=== PATIENT | female | born 1935 | race Hispanic/Latino ===

== ENCOUNTER 2018-03-05 13:19 | Emergency (ER) | payer OTHER ==
[2018-03-05 14:28] LABS: BASOPHILS % (AUTO) 0.5 % (0.0-5.0); EOSINOPHILS % (AUTO) 0.3 % (0.0-8.0); HEMATOCRIT 35.4 % (36-48); LYMPHOCYTES % (AUTO) 15.5 % (21.0-51.0); MEAN CORPUSCULAR HEMOGLOBIN 31.8 pg (27.0-33.0); MEAN CORPUSCULAR HGB CONC 34.8 g/dL (32.0-36.0); MEAN CORPUSCULAR VOLUME 91.3 fL (79-99); MONOCYTES % (AUTO) 6.7 % (3.0-13.0); PLATELET COUNT (AUTO) 97 K/uL (130-400); RED BLOOD CELL COUNT(AUTO) 3.88 MIL/uL (4.00-5.50); RED CELL DISTRIBUTION WIDTH 16.6 % (11.0-15.5); WHITE BLOOD COUNT (AUTO) 5.1 K/uL (4.8-10.8)
[2018-03-05 14:42] LABS: ALBUMIN 3.4 g/dL (3.5-5.0); BILIRUBIN,TOTAL 0.7 mg/dL (0.2-1.0); POTASSIUM 4.2 mmol/L (3.5-5.1); TOTAL PROTEIN, SERUM 6.4 g/dL (6.0-8.3)
[2018-03-05] MEDS ORDERED: TETANUS/DIPHTHERIA TOXOID [ADULT] 0.5 ML VIAL IM ONE (15:41)
== END 2018-03-05 16:13 | disposition home or self-care (01) ==
LOC: EDH 13:19
DX: S01.01XA Laceration without foreign body of scalp, initial encounter (principal); I25.10 Atherosclerotic heart disease of native coronary artery without angina pectoris; E11.9 Type 2 diabetes mellitus without complications; E78.5 Hyperlipidemia, unspecified; I10 Essential (primary) hypertension; Z90.49 Acquired absence of other specified parts of digestive tract; Z98.890 Other specified postprocedural states; W18.39XA Other fall on same level, initial encounter; Y93.89 Activity, other specified; Y92.89 Other specified places as the place of occurrence of the external cause; Y99.8 Other external cause status
CPT/HCPCS: 12001; 36415; 70450; 80053; 85025; 90471; 90714

== ENCOUNTER → 2018-05-03 | Outpatient (CLI) | payer OTHER ==
[~2018-05-03] MED LIST: GADODIAMIDE 5 MMOL/10 ML VIAL 5 MMOL/10 ML ML IV ONE
== END | disposition home or self-care (01) ==
LOC: RAH 11:10
PROVIDERS: ATTEND Family Medicine
DX: G31.9 Degenerative disease of nervous system, unspecified (principal); R26.9 Unspecified abnormalities of gait and mobility; R90.82 White matter disease, unspecified
CPT/HCPCS: 70553; A9579

== ENCOUNTER 2019-10-14 13:54 | Inpatient (IN) | payer OTHER ==
[~2019-10-14] VITALS: Ht 160 cm; Wt 62.6 kg
[2019-10-14 14:46] LABS: BASOPHILS % (AUTO) 0.4 % (0.0-5.0); EOSINOPHILS % (AUTO) 1.2 % (0.0-8.0); HEMATOCRIT 31.9 % (36-48); LYMPHOCYTES % (AUTO) 17.1 % (21.0-51.0); MEAN CORPUSCULAR HEMOGLOBIN 29.5 pg (27.0-33.0); MEAN CORPUSCULAR HGB CONC 34.2 g/dL (32.0-36.0); MEAN CORPUSCULAR VOLUME 86.2 fL (79-99); MONOCYTES % (AUTO) 6.3 % (3.0-13.0); NEUTROPHILS % (AUTO) 74.4 % (40.0-77.0); PLATELET COUNT (AUTO) 77 K/uL (130-400); RED CELL DISTRIBUTION WIDTH 13.7 % (11.0-15.5); WHITE BLOOD COUNT (AUTO) 5.1 K/uL (4.8-10.8)
[2019-10-14 15:03] LABS: APPEARANCE,URINE Clear (CLEAR); BILIRUBIN,URINE Negative (NEGATIVE); COLOR,URINE Yellow (YELLOW); GLUCOSE, URINE (UA) >=1000 mg/dL (NEGATIVE); KETONES,URINE Negative (NEGATIVE); LEUKOCYTE ESTERASE ,URINE Negative (NEGATIVE); NITRATE,URINE Negative (NEGATIVE); OCCULT BLOOD,URINE Negative (NEGATIVE); PROTEIN,URINE Negative (NEGATIVE)
[2019-10-14 15:16] LABS: INR 1.08 (0.85-1.15); PARTIAL THROMBOPLASTIN TIME 23.8 SEC (26.3-35.5); PROTHROMBIN TIME 11.6 SEC (9.6-11.6)
[2019-10-14 15:17] LABS: BACTERIA,URINE Rare /HPF (None Seen); RBC,URINE None Seen /HPF (0-1); SQUAMOUS EPITHELIAL CELL,UR 0-2 /HPF (0-2); WBC,URINE 0-1 /HPF (0-1)
[2019-10-14 15:34] LABS: ALBUMIN 3.4 g/dL (3.5-5.0); BILIRUBIN,TOTAL 0.8 mg/dL (0.2-1.0); CREATININE 0.6 mg/dL (0.5-1.5); TOTAL PROTEIN, SERUM 6.4 g/dL (6.0-8.3)
[2019-10-14 15:52] LABS: POTASSIUM 3.8 mmol/L (3.5-5.1)
[2019-10-14] MEDS ORDERED: MAG HYDROX/AL HYDROX/SIMETH ES 30 ML SUSP UDCUP PO PRN (16:45)
[2019-10-14] MEDS ORDERED: LIDOCAINE HCL-MPF 1% 2ML VIAL IV PRN (16:45)
[2019-10-14] MEDS ORDERED: POTASSIUM CHLORIDE 20 MEQ ERTAB PO PRN (16:45)
[2019-10-14] MEDS ORDERED: NITROGLYCERIN 0.4 MG SL TAB SL PRN (16:45)
[2019-10-14] MEDS ORDERED: ONDANSETRON HCL 4 MG/2 ML VIAL IV PRN (16:45)
[2019-10-14] MEDS ORDERED: POTASSIUM CHLORIDE 10% ELIXIR 20 MEQ/15 ML UDCUP PO PRN (16:45)
[2019-10-14] MEDS ORDERED: HYDRALAZINE HCL 20 MG/ML VIAL IV PRN (16:45)
[2019-10-14] MEDS ORDERED: POTASSIUM CHLORIDE 20MEQ/100ML 100 ML IV PRN (16:45)
[2019-10-14] MEDS ORDERED: MAGNESIUM 2GM PREMIX 50ML 50 ML IV PRN (16:45)
[2019-10-14] MEDS ORDERED: DiphenhydrAMINE HCL 50 MG/ML VIAL IV PRN (16:45)
[2019-10-14] MEDS ORDERED: ACETAMINOPHEN 325 MG TAB PO PRN ×2 (16:45)
[2019-10-14] MEDS ORDERED: GUAIFENESIN-DM 200/20 MG 10 ML PO PRN (16:45)
[2019-10-14] MEDS ORDERED: DIPHENHYDRAMINE HCL 25 MG CAPSULE PO PRN (16:45)
[2019-10-14] MEDS ORDERED: ZOLPIDEM TARTRATE 5 MG TAB PO PRN (16:45)
[2019-10-14 18:00] VITALS: BP 126/62
[2019-10-14 19:35] VITALS: BP 110/53
[2019-10-14 23:40] VITALS: BP 108/52
[2019-10-15] MEDS: MORPHINE SULFATE 2 MG/ML 1ML SYG IV PRN (00:51)
[2019-10-15 04:02] VITALS: BP 97/52
[2019-10-15 05:14] LABS: BASOPHILS % (AUTO) 0.1 % (0.0-5.0); EOSINOPHILS % (AUTO) 0.1 % (0.0-8.0); HEMATOCRIT 25.8 % (36-48); LYMPHOCYTES % (AUTO) 16.8 % (21.0-51.0); MEAN CORPUSCULAR HEMOGLOBIN 29.7 pg (27.0-33.0); MEAN CORPUSCULAR HGB CONC 33.7 g/dL (32.0-36.0); MEAN CORPUSCULAR VOLUME 88.1 fL (79-99); MONOCYTES % (AUTO) 9.3 % (3.0-13.0); NEUTROPHILS % (AUTO) 73.5 % (40.0-77.0); PLATELET COUNT (AUTO) 87 K/uL (130-400); RED BLOOD CELL COUNT(AUTO) 2.93 MIL/uL (4.00-5.50); RED CELL DISTRIBUTION WIDTH 14.2 % (11.0-15.5); WHITE BLOOD COUNT (AUTO) 8.1 K/uL (4.8-10.8)
[2019-10-15 05:21] LABS: HEMOGLOBIN A1C 10.3 % (4.0-6.0)
[2019-10-15 05:47] LABS: ALBUMIN 3.1 g/dL (3.5-5.0); BILIRUBIN,TOTAL 0.9 mg/dL (0.2-1.0); CREATININE 0.9 mg/dL (0.5-1.5); MAGNESIUM 1.9 mg/dL (1.80-2.40); POTASSIUM 4.1 mmol/L (3.5-5.1); TOTAL PROTEIN, SERUM 5.6 g/dL (6.0-8.3)
[2019-10-15 08:00] VITALS: BP 100/56
[2019-10-15] MEDS: FAMOTIDINE 20MG TAB 20 MG TAB PO SCH (09:27)
[2019-10-15] MEDS: ENOXAPARIN SODIUM 40 MG/0.4 ML SYRINGE SQ SCH (09:27)
[2019-10-15 12:00] VITALS: BP 117/60
--- NOTE | 2019-10-15 15:05 | NUR ---
INITIAL: Met with pt this afternoon to discuss dcp. Pt mentions that she lives alone. Prior to admission she was using a tri walker for ambulation and was independent w ADLs. Pt states that she does not receive any services. She mentions that she owns a wc and sh chair. Per pt she is open to poss SNF/Rehab @ [place] if Md recommends. She mentions that she has previously been to [place]. Informed her that CM will continue to follow her progress post op and wait for Md recommendations. Informed her as well that would need to obtain ins auth if Md orders SNF/Rehab. Pt verbalizes understanding. CM to continue to follow and wait for Md recommendations. Addendum: 10/15/19 at 1509 by SETH MARTINEZ Amended: Links added.
[2019-10-15 16:00] VITALS: BP 114/59
[2019-10-15] MEDS: INSULIN HUMULIN R 100 UNIT/ML 3ML SQ SCH ×2 (16:30→22:15)
[2019-10-15 20:12] VITALS: BP 136/68
[2019-10-15] MEDS: SODIUM CHLORIDE 0.9% 1000ML 1,000 ML IV SCH (21:00)
[2019-10-15] MEDS: ACETAMINOPHEN-CODEINE 300/30MG TAB PO PRN (22:06)
[2019-10-15] MEDS: INSULIN GLARGINE 100 UNITS/ML 10 ML VIAL SQ SCH (22:13)
[2019-10-16] VITALS (7 sets, daily range): BP systolic 106–123; BP diastolic 50–56
[2019-10-16] MEDS: SODIUM CHLORIDE 0.9% 1000ML 1,000 ML IV SCH ×2 (03:50→17:33)
[2019-10-16 05:28] LABS: BASOPHILS % (AUTO) 0.2 % (0.0-5.0); LYMPHOCYTES % (AUTO) 25.5 % (21.0-51.0); MEAN CORPUSCULAR HEMOGLOBIN 30.2 pg (27.0-33.0); MEAN CORPUSCULAR HGB CONC 34.6 g/dL (32.0-36.0); MEAN CORPUSCULAR VOLUME 87.2 fL (79-99); MONOCYTES % (AUTO) 10.8 % (3.0-13.0); NEUTROPHILS % (AUTO) 61.1 % (40.0-77.0); PLATELET COUNT (AUTO) 60 K/uL (130-400); RED BLOOD CELL COUNT(AUTO) 2.35 MIL/uL (4.00-5.50); RED CELL DISTRIBUTION WIDTH 14.5 % (11.0-15.5)
[2019-10-16 05:43] LABS: HEMATOCRIT 20.5 % (36-48)
[2019-10-16 06:03] LABS: CREATININE 0.8 mg/dL (0.5-1.5); MAGNESIUM 1.8 mg/dL (1.80-2.40); POTASSIUM 3.8 mmol/L (3.5-5.1)
[2019-10-16] MEDS: ENOXAPARIN SODIUM 40 MG/0.4 ML SYRINGE SQ SCH (07:34)
[2019-10-16] MEDS: INSULIN HUMULIN R 100 UNIT/ML 3ML SQ SCH ×4 (07:47→20:18)
[2019-10-16] MEDS: FAMOTIDINE 20MG TAB 20 MG TAB PO SCH (08:32)
[2019-10-16 11:09] LABS: HEMATOCRIT 20.3 % (36-48)
[2019-10-16] MEDS: ACETAMINOPHEN-CODEINE 300/30MG TAB PO PRN ×2 (11:33→20:11)
--- NOTE | 2019-10-16 12:44 | NUR ---
LMENDIOLHumberto DOE \ MADE AWARE OF CRITICAL H/H 6.7 AND 20.3. PENDING ORDERS
[2019-10-16] MEDS: INSULIN GLARGINE 100 UNITS/ML 10 ML VIAL SQ SCH (20:21)
[2019-10-17] VITALS (24 sets, daily range): BP systolic 129–165; BP diastolic 56–73
[2019-10-17 00:53] LABS: HEMATOCRIT 24.4 % (36-48)
[2019-10-17] MEDS ORDERED: CEFAZOLIN SODIUM 1 GM VIAL IVP PRN (06:00)
--- NOTE | 2019-10-17 07:00 | NUR ---
NOTE AAOX3. DENIES PAIN AT THIS TIME. NO SOB NO DISTRESS. BBS CLEAR. NO N/V NO OTHER PROBLEM VOICED. NPO FOR SURGERY TODAY. SHE WAS HAVING SECOND THOUGHTS ABOUT SURGERY. I ASKED HER WHY AND SHE MENTIONED SHE DID NOT KNOW WHETHER TO HAVE SURGERY DONE OR WHETHER IT WAS REALLY NEEDED. SHE WAS QUESTIONING WHETHER SHE EVEN HAD A FRACTURE. I SHOWED HER THE X-RAY OF THE LEFT FEMUR AND WAS ABLE TO SEE A CLEAR DISTAL LEFT FEMUR FRACTURE AND WAS TOLD BY ORTHO DOCTOR THIS WOULD BE THE BEST OPTION FAR TREATMENT GOES. SHE HAD HER MIND AT EASE AND IS WILLING TO HAVE PROCEDURE DONE NOW.
[2019-10-17] MEDS: INSULIN HUMULIN R 100 UNIT/ML 3ML SQ SCH ×4 (07:30→21:04)
[2019-10-17] MEDS: SODIUM CHLORIDE 0.9% 1000ML 1,000 ML IV SCH (08:09)
--- NOTE | 2019-10-17 08:15 | NUR ---
PLATELET COUNT 60 10-16-19 NOTIFIED Isis Hollis RN nurse in room with Dr Herbert NOVOA ordered Addendum: 10/17/19 at 0837 by CAROLEE JAMES RN RN Amended: Links added.
[2019-10-17] MEDS: FAMOTIDINE 20MG TAB 20 MG TAB PO SCH (08:24)
[2019-10-17] MEDS: ENOXAPARIN SODIUM 40 MG/0.4 ML SYRINGE SQ SCH (08:24)
[2019-10-17 08:51] LABS: BASOPHILS % (AUTO) 0.2 % (0.0-5.0); EOSINOPHILS % (AUTO) 2.2 % (0.0-8.0); HEMATOCRIT 24.5 % (36-48); LYMPHOCYTES % (AUTO) 19.5 % (21.0-51.0); MEAN CORPUSCULAR HEMOGLOBIN 30.2 pg (27.0-33.0); MEAN CORPUSCULAR HGB CONC 34.3 g/dL (32.0-36.0); MEAN CORPUSCULAR VOLUME 88.1 fL (79-99); MONOCYTES % (AUTO) 8.7 % (3.0-13.0); RED BLOOD CELL COUNT(AUTO) 2.78 MIL/uL (4.00-5.50); RED CELL DISTRIBUTION WIDTH 14.2 % (11.0-15.5); WHITE BLOOD COUNT (AUTO) 4.6 K/uL (4.8-10.8)
--- NOTE | 2019-10-17 09:00 | NUR ---
NOTE PATIENT OUT OF ROOM FOR SURGERY AT THIS TIME. STABLE UPON LEAVING.
[2019-10-17 09:21] LABS: PLATELET COUNT (AUTO) 50 K/uL (130-400)
[2019-10-17] MEDS ORDERED: LIDOCAINE PF 2% 5ML ABBOJECT ONE (09:21)
[2019-10-17] MEDS ORDERED: SUCCINYLCHOLINE CHLORIDE 20 MG/ML 10 ML VIAL ONE (09:21)
[2019-10-17] MEDS ORDERED: PROPOFOL 10 MG/ML 20ML VIAL IV ONE (09:22)
[2019-10-17] MEDS ORDERED: ROCURONIUM 10MG/1ML SYR 10 MG/ML ML ONE (09:22)
[2019-10-17] MEDS ORDERED: ROPIVACAINE 0.5% 5MG/ML 30ML IJ ONE (09:25)
[2019-10-17] MEDS ORDERED: DURAMORPH PF1 MG/ML 10ML AMP IV ONE (09:25)
[2019-10-17] MEDS ORDERED: KETAMINE 50MG/ML SYRINGE 50 MG/ML DISP.SYRIN IV ONE (09:26)
[2019-10-17] MEDS ORDERED: SUCCINYLCHOLINE 200MG/10ML SYR ONE (09:27)
[2019-10-17] MEDS ORDERED: GLYCOPYRROLATE 1 MG/5 ML SYRINGE ONE (10:30)
[2019-10-17] MEDS ORDERED: NEOSTIGMINE 5MG/5ML SYR IV ONE (10:30)
[2019-10-17] MEDS ORDERED: ONDANSETRON HCL 4 MG/2 ML VIAL ONE (10:56)
--- NOTE | 2019-10-17 11:13 | NUR ---
per JENNIFER Tomlinson patient is schedule for procedure this AM. Addendum: 10/17/19 at 1114 by ELZA TSANG PT PT Amended: Links added.
--- NOTE | 2019-10-17 12:30 | NUR ---
NOTE RETURNED FROM SURGERY AT THIS TIME. SHE IS STABLE. DENIES PAIN TO OPERATED LEG BUT C/O SORE THROAT. DRESSING TO LEFT LEG WITH RICK BANDAGE ALSO BOTH D/I. PEDAL PULSES BOTH SIDE PRESENT EQUALLY STRONG. HAS SENSATION AND MOVEMENT TO BOTH FEET.
[2019-10-17] MEDS ORDERED: BENZOCAINE/MENTH/CETYLPYRD CL 1 EACH LOZENGE MM PRN (15:15)
--- NOTE | 2019-10-17 17:40 | NUR ---
CM NOTE/DC PLAN ATTEMPT MEET WITH PATIENT IN ROOM. PATIENT AROUSABLE BUT DROWSY, S/P INTRAMEDULLARY NAILING TO LEFT FEMUR WITH DR. LINK. PREVIOUS NOTE STATES PATIENT IS OPEN TO SNF. TRIED TO DISCUSS DC PLAN TO SNF BUT TOO DROWSY. CM TO FOLLOW UP.
[2019-10-17] MEDS: INSULIN GLARGINE 100 UNITS/ML 10 ML VIAL SQ SCH (21:03)
[2019-10-17] MEDS: ACETAMINOPHEN-CODEINE 300/30MG TAB PO PRN (21:05)
[2019-10-18] VITALS (7 sets, daily range): BP systolic 97–126; BP diastolic 40–53
[2019-10-18 05:10] LABS: MEAN CORPUSCULAR HEMOGLOBIN 29.8 pg (27.0-33.0); MEAN CORPUSCULAR HGB CONC 34.3 g/dL (32.0-36.0); MEAN CORPUSCULAR VOLUME 86.8 fL (79-99); RED BLOOD CELL COUNT(AUTO) 2.42 MIL/uL (4.00-5.50); RED CELL DISTRIBUTION WIDTH 14.4 % (11.0-15.5); WHITE BLOOD COUNT (AUTO) 6.2 K/uL (4.8-10.8)
[2019-10-18 05:27] LABS: CREATININE 0.6 mg/dL (0.5-1.5); POTASSIUM 3.7 mmol/L (3.5-5.1)
--- NOTE | 2019-10-18 05:31 | NUR ---
THIS IS THE THIRD ATTEMPT TO PAGING BENCH KOLE FOR PT'S HEMOGLOBIN AND HEMATOCRIT BUT AM UN ABLE TO GET THROUGH THE ANSWERING SERVICES WILL KEEP ON TRYING
--- NOTE | 2019-10-18 05:36 | NUR ---
BENCHMARK PAGE FOR PT'S LAB WORK
[2019-10-18] MEDS: INSULIN HUMULIN R 100 UNIT/ML 3ML SQ SCH ×4 (06:11→21:19)
[2019-10-18] MEDS: ENOXAPARIN SODIUM 40 MG/0.4 ML SYRINGE SQ SCH (09:51)
[2019-10-18] MEDS: FAMOTIDINE 20MG TAB 20 MG TAB PO SCH (09:51)
[2019-10-18] MEDS: SULFAMETHOX-TMP DS 800/160 TAB PO SCH ×2 (09:52→21:13)
[2019-10-18] MEDS: ACETAMINOPHEN-CODEINE 300/30MG TAB PO PRN ×3 (09:59→18:11)
--- NOTE | 2019-10-18 12:34 | NUR ---
CM NOTE/REFERRAL NEW REFERRAL FOR SNF, MEET WITH PATIENT IN ROOM, ANDRE[facility] FOR [facility]. [facility] MADE AWARE, CLINICAL PACKET EMAILED ALONG WITH [facility]. PENDING PT NOTES, WILL FAX WHEN AVAILABLE. PENDING AUTHORIZATION FOR SNF.CM TO FOLLOW UP.
--- NOTE | 2019-10-18 14:46 | NUR ---
CM NOTE/PT EVAL NOTES PT EVAL AND NOTES EMAILED TO [facility] AT [facility], CONFIRMED RECEIVED.
[2019-10-18] MEDS: INSULIN GLARGINE 100 UNITS/ML 10 ML VIAL SQ SCH (21:20)
[2019-10-19 03:48] VITALS: BP 113/49
[2019-10-19 04:37] LABS: BASOPHILS % (AUTO) 0.5 % (0.0-5.0); EOSINOPHILS % (AUTO) 2.8 % (0.0-8.0); LYMPHOCYTES % (AUTO) 24.9 % (21.0-51.0); MEAN CORPUSCULAR HEMOGLOBIN 30.6 pg (27.0-33.0); MEAN CORPUSCULAR HGB CONC 34.7 g/dL (32.0-36.0); MEAN CORPUSCULAR VOLUME 88.1 fL (79-99); MONOCYTES % (AUTO) 10.8 % (3.0-13.0); NEUTROPHILS % (AUTO) 60.5 % (40.0-77.0); PLATELET COUNT (AUTO) 87 K/uL (130-400); RED BLOOD CELL COUNT(AUTO) 2.19 MIL/uL (4.00-5.50); RED CELL DISTRIBUTION WIDTH 14.9 % (11.0-15.5); WHITE BLOOD COUNT (AUTO) 4.3 K/uL (4.8-10.8)
[2019-10-19 04:49] LABS: CREATININE 0.6 mg/dL (0.5-1.5); POTASSIUM 3.4 mmol/L (3.5-5.1)
[2019-10-19 04:57] LABS: HEMATOCRIT 19.3 % (36-48)
--- NOTE | 2019-10-19 05:36 | NUR ---
NOTE [id number] PAGED CLOTH CALENDER FOR BENCHMARK. [phone] RECEIVED Call back from Alex Gutierres NP. in formed of h&h results this am 6.7/19.3. received orders to transfuse one unit of prbc. [facility] states patient has 2 units of prbc ready. notified patient of new orders and she agreed. she had already a consent on chart for transfusion.
[2019-10-19] MEDS ORDERED: SODIUM CHLORIDE 0.9% 250 ML IV ONE (05:48)
[2019-10-19] MEDS: LACTULOSE 20 GM/30 ML UDCUP PO PRN ×2 (06:34→18:32)
[2019-10-19] MEDS: INSULIN HUMULIN R 100 UNIT/ML 3ML SQ SCH ×4 (06:37→21:40)
[2019-10-19 07:18] VITALS: BP 118/48
[2019-10-19] MEDS: ENOXAPARIN SODIUM 40 MG/0.4 ML SYRINGE SQ SCH (09:00)
[2019-10-19] MEDS: ACETAMINOPHEN-CODEINE 300/30MG TAB PO PRN ×2 (09:27→17:23)
[2019-10-19] MEDS: FAMOTIDINE 20MG TAB 20 MG TAB PO SCH (09:27)
[2019-10-19] MEDS: SULFAMETHOX-TMP DS 800/160 TAB PO SCH ×2 (09:27→21:38)
[2019-10-19 11:26] VITALS: BP 120/51
[2019-10-19 12:37] LABS: HEMATOCRIT 23.5 % (36-48); MEAN CORPUSCULAR HEMOGLOBIN 29.7 pg (27.0-33.0); MEAN CORPUSCULAR VOLUME 87.4 fL (79-99); RED BLOOD CELL COUNT(AUTO) 2.69 MIL/uL (4.00-5.50); RED CELL DISTRIBUTION WIDTH 14.4 % (11.0-15.5); WHITE BLOOD COUNT (AUTO) 3.6 K/uL (4.8-10.8)
[2019-10-19] MEDS: MORPHINE SULFATE 2 MG/ML 1ML SYG IV PRN (13:35)
--- NOTE | 2019-10-19 14:06 | NUR ---
DC PLAN SENT UPDATED INFO TO [facility] INCLUDING PT EVAL AND ORDER PENDING AUTH. Addendum: 10/19/19 at 1408 by BREN PIERCE RN CM Amended: Links added.
[2019-10-19 16:43] VITALS: BP 136/50
[2019-10-19 20:28] VITALS: BP 126/56
[2019-10-19] MEDS: INSULIN GLARGINE 100 UNITS/ML 10 ML VIAL SQ SCH (21:39)
[2019-10-19 23:52] VITALS: BP 130/55
[2019-10-20 03:47] VITALS: BP 145/47
[2019-10-20] MEDS: INSULIN HUMULIN R 100 UNIT/ML 3ML SQ SCH ×4 (06:58→20:54)
[2019-10-20] MEDS: LACTULOSE 20 GM/30 ML UDCUP PO PRN (07:36)
[2019-10-20 07:42] VITALS: BP 135/58
--- NOTE | 2019-10-20 08:00 | NUR ---
NOTE AAOX3. DENIES PAIN OR DISCOMFORT AT THIS TIME. WAS REPORTED TO ME THAT SHE WAS IN SEVERE PAIN YESTERDAY WHEN P.T. WORKED WITH HER. I WILL PREMEDICATE FOR PAIN THIS AM BEFORE P.T. WILL ALSO CLARIFY WEIGHT BEARING STATUS AND KNEE IMMOBILIZER SINCE THERE IS NOTHING IN WRITING OR ORDER FORMAT. SHE IS POD# 3 LEFT FEMUR RETROGRADE INTRAMEDULLARY NAIL FIXATION. DRESSING TO LEFT THIGH AND RICK WRAP WELL IMMOBILIZER. SHE HAD F/C DC'D EARLIER THIS AM AND SHE IS PENDING TO VOID. ALSO PENDING TO HAVE BM. SHE IS PENDING APPROVAL TO SNF.
[2019-10-20 08:27] LABS: HEMATOCRIT 27.6 % (36-48); MEAN CORPUSCULAR HEMOGLOBIN 29.9 pg (27.0-33.0); MEAN CORPUSCULAR HGB CONC 34.4 g/dL (32.0-36.0); MEAN CORPUSCULAR VOLUME 86.8 fL (79-99); RED BLOOD CELL COUNT(AUTO) 3.18 MIL/uL (4.00-5.50); RED CELL DISTRIBUTION WIDTH 14.8 % (11.0-15.5)
[2019-10-20] MEDS: FAMOTIDINE 20MG TAB 20 MG TAB PO SCH (09:49)
[2019-10-20] MEDS: SULFAMETHOX-TMP DS 800/160 TAB PO SCH ×2 (09:49→20:56)
[2019-10-20] MEDS: ENOXAPARIN SODIUM 40 MG/0.4 ML SYRINGE SQ SCH (09:50)
[2019-10-20] MEDS: MORPHINE SULFATE 2 MG/ML 1ML SYG IV PRN (10:28)
--- NOTE | 2019-10-20 10:37 | NUR ---
GHULAM GORMAN FROM [facility] CALLED SAID PATIENT ACCEPTED AT 1000. LET NURSE KNOW OF ACCEPTANCE. COVID FORM SIGNED. JORDIN DONE. EMS STARTED. Addendum: 10/20/19 at 1038 by BREN PIERCE RN CM Amended: Links added.
[2019-10-20 11:00] VITALS: BP 131/53
[2019-10-20] MEDS ORDERED: MAGNESIUM CITRATE 296 ML SOLUTION PO SCH (12:30)
--- NOTE | 2019-10-20 13:00 | NUR ---
NOTE SHE HAS RECEIVED LAXATIVES ALL NIGHT AND THIS AM AND NOW. SHE HAS NOT HAD BM. SHE HAS BEEN ENCOURAGED TO DRINK WATER BECAUSE SHE IS ALSO PENDING TO VOID BECAUSE SHE HAD HER F/C DC'D EARLIER THIS AM WELL. DOES NOT FEEL LIKE SHE NEEDS TO VOID. BLADDER SCAN SHOWS 300CC. ENCOURAGED TO KEEP DRINKING WATER AND I WILL RESCAN UNLESS SHE VOIDS.
--- NOTE | 2019-10-20 14:56 | NUR ---
JANETTE SCREEN - LOS X 6 Pt s/p Procedure. Fair PO intake (50-75%), no report of GI distress. Note, elevated BG levels (209) at time of screen. Pt advanced age 84y/o. Recommend 60gm CC diet order, secondary to elevated BG levels, Hx of DM. Recommend Glucerna QD. RD to continue to monitor. Please notify as nutrition concerns arise. Thank you. Addendum: 10/20/19 at [address] Amended: Links added.
[2019-10-20 15:50] VITALS: BP 124/53
--- NOTE | 2019-10-20 16:45 | NUR ---
NOTE SHE HAS HAD 2 GIANT BM'S LIQUID CONSISTENCY IN A DIAPER. SHE STATES SHE VOIDED WELL. ON BLADDER SCA IT STILL SHOWS 300 CC.
[2019-10-20 19:57] VITALS: BP 134/58
[2019-10-20] MEDS ORDERED: TAMSULOSIN HCL 0.4 MG CAP.ER.24H PO SCH (20:00)
[2019-10-20] MEDS: ACETAMINOPHEN-CODEINE 300/30MG TAB PO PRN (20:36)
[2019-10-20] MEDS: INSULIN GLARGINE 100 UNITS/ML 10 ML VIAL SQ SCH (20:55)
[2019-10-20 23:29] VITALS: BP 123/55
--- NOTE | 2019-10-21 00:19 | NUR ---
PATIENT VERBALIZED PAIN ALLEVIATED TO 3/10. PATIENT ALERT ORIENTED X 4. PRN ACETAMINOPHEN GIVEN. ICE PACKED APPLIED. PT TOLERATED IT. PATIENT DENIED ANY OTHER PAIN OTHER THAN THE LEFT LEG. NO DYSPNEA, NOR NAUSEA NOR CHEST PAIN NOR HEADACHE.COMFORT MEASURES RENDERED
[2019-10-21 04:00] VITALS: BP 95/49
[2019-10-21] MEDS: INSULIN HUMULIN R 100 UNIT/ML 3ML SQ SCH ×4 (06:00→20:17)
[2019-10-21 06:03] VITALS: BP 120/65
[2019-10-21] MEDS: ACETAMINOPHEN-CODEINE 300/30MG TAB PO PRN ×2 (06:03→20:54)
[2019-10-21] MEDS: FAMOTIDINE 20MG TAB 20 MG TAB PO SCH (09:50)
[2019-10-21] MEDS: ENOXAPARIN SODIUM 40 MG/0.4 ML SYRINGE SQ SCH (09:55)
--- NOTE | 2019-10-21 10:00 | NUR ---
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 PATIENT REPORTS SHE URINATED IN BRIEFS. PERFORMED BLADDER SCAN AND OBTAINED READING OF 2 ML.
[2019-10-21] MEDS: HYDROMORPHONE 1 MG/1 ML AMP IV PRN ×2 (10:05→16:19)
--- NOTE | 2019-10-21 10:15 | NUR ---
TIERRA HU NP ROUNDING AT THIS TIME. INFORMED THAT PATIENTS LEFT LEFT APPEARS VERY SWOLLEN AND BRUISED. Toshia YOUSIF NP ORDERED LLE VENOUS DOPPLER AND IF NEGATIVE OKAY TO PROCEED WITH TRANSFER TO [facility].
[2019-10-21 11:37] VITALS: BP 125/60
[2019-10-21 16:00] VITALS: BP 154/58
[2019-10-21 19:00] VITALS: BP 140/61
[2019-10-21] MEDS: INSULIN GLARGINE 100 UNITS/ML 10 ML VIAL SQ SCH (20:51)
[2019-10-21 23:00] VITALS: BP 133/52
[2019-10-22 03:00] VITALS: BP 140/52
[2019-10-22] MEDS: HYDROMORPHONE 1 MG/1 ML AMP IV PRN ×2 (03:59→10:12)
[2019-10-22] MEDS: INSULIN HUMULIN R 100 UNIT/ML 3ML SQ SCH ×2 (06:38→11:30)
[2019-10-22 08:12] VITALS: BP 119/49
[2019-10-22] MEDS: ENOXAPARIN SODIUM 40 MG/0.4 ML SYRINGE SQ SCH (09:27)
[2019-10-22] MEDS: FAMOTIDINE 20MG TAB 20 MG TAB PO SCH (09:27)
[2019-10-22 12:00] VITALS: BP 130/74
--- NOTE | 2019-10-22 14:55 | NUR ---
RETAMA REPORT GIVEN TO АНДРЕЙ ARREOLA OF [facility].
--- NOTE | 2019-10-22 15:05 | NUR ---
ATTEMPT TO NOTIFY FAMILY CALLED PATIENTS SON (MALISSA CURRY [phone]) NO ANSWER AND UNABLE TO LEAVE VOICEMAIL.
--- NOTE | 2019-10-22 15:05 | NUR ---
[facility] CALLED AND NOTIFIED PATIENT IN ROOM 305 AND READY TO BE PICKED UP AND TRANSFERRED TO [facility].
--- NOTE | 2019-10-22 17:10 | NUR ---
FAMILY NOTIFIED SPOKE TO PATIENT SON CICI CURRY [phone] AND INFORMED PATIENT TRANSFERRED TO [facility] TODAY.
== END 2019-10-22 16:08 | DRG 481 ==
LOC: EDH 13:54 → EDHIP 16:31 → 3BH 17:37
PROVIDERS: ADMIT Internal Medicine Pulmonary Disease; ATTEND Internal Medicine Pulmonary Disease
PROC: 30233N1 Transfusion of Nonautologous Red Blood Cells into Peripheral Vein, Percutaneous Approach (ICD-10-PCS; 2019-10-16)
PROC: 0QHC36Z Insertion of Intramedullary Internal Fixation Device into Left Lower Femur, Percutaneous Approach (ICD-10-PCS; principal; 2019-10-17 10:10)
PROC: 30233R1 Transfusion of Nonautologous Platelets into Peripheral Vein, Percutaneous Approach (ICD-10-PCS; 2019-10-17 10:10)
DX: S72.462A Displaced supracondylar fracture with intracondylar extension of lower end of left femur, initial encounter for closed fracture (principal); D62 Acute posthemorrhagic anemia; W18.30XA Fall on same level, unspecified, initial encounter; I10 Essential (primary) hypertension; E78.5 Hyperlipidemia, unspecified; I25.10 Atherosclerotic heart disease of native coronary artery without angina pectoris; Y92.009 Unspecified place in unspecified non-institutional (private) residence as the place of occurrence of the external cause; Z87.891 Personal history of nicotine dependence; E11.9 Type 2 diabetes mellitus without complications; Y93.89 Activity, other specified; Y99.8 Other external cause status
CPT/HCPCS: 36415; 36430; 70450; 71045; 73502; 73552; 73700; 80048; 80053; 80061; 81001; 82550; 82948; 83036; 83735; 84484; 85014; 85018; 85025; 85027; 85049; 85610; 85730; 86850; 86900; 86901; 86922; 87077; 87088; 87186; 93005; 93306; 93356; 93880; 93971; 97039; G0378; J0330; J0690; J1170; J1650; J1815; J2001; J2274; J2405; J2704; J2710; J2795; J3490; J7030; P9016; P9034

== ENCOUNTER → 2020-05-15 | Outpatient (CLI) | payer OTHER | END | disposition home or self-care (01) | LOC: RAH 09:10 | PROVIDERS: ATTEND Family Medicine | DX: R60.0 Localized edema (principal) | CPT/HCPCS: 93971 ==

== ENCOUNTER 2020-06-25 14:57 | Emergency (ER) | payer OTHER ==
[2020-06-25 15:54] LABS: BASOPHILS % (AUTO) 0.3 % (0.0-5.0); EOSINOPHILS % (AUTO) 1.6 % (0.0-8.0); LYMPHOCYTES % (AUTO) 21.6 % (21.0-51.0); MEAN CORPUSCULAR HEMOGLOBIN 29.2 pg (27.0-33.0); MEAN CORPUSCULAR HGB CONC 33.7 g/dL (32.0-36.0); MEAN CORPUSCULAR VOLUME 86.7 fL (79-99); MONOCYTES % (AUTO) 7.6 % (3.0-13.0); NEUTROPHILS % (AUTO) 68.6 % (40.0-77.0); PLATELET COUNT (AUTO) 84 K/uL (130-400); RED BLOOD CELL COUNT(AUTO) 3.46 MIL/uL (4.00-5.50); RED CELL DISTRIBUTION WIDTH 15.6 % (11.0-15.5); WHITE BLOOD COUNT (AUTO) 3.8 K/uL (4.8-10.8)
[2020-06-25 16:10] LABS: CREATININE 0.6 mg/dL (0.5-1.5); POTASSIUM 3.7 mmol/L (3.5-5.1)
[2020-06-25 16:15] LABS: ALBUMIN 2.8 g/dL (3.5-5.0); BILIRUBIN,TOTAL 0.8 mg/dL (0.2-1.0); TOTAL PROTEIN, SERUM 6.6 g/dL (6.0-8.3)
== END 2020-06-25 23:28 | disposition home or self-care (01) ==
LOC: EDH 14:57
DX: S20.212A Contusion of left front wall of thorax, initial encounter (principal); M79.605 Pain in left leg; E11.9 Type 2 diabetes mellitus without complications; I10 Essential (primary) hypertension; E78.5 Hyperlipidemia, unspecified; I25.10 Atherosclerotic heart disease of native coronary artery without angina pectoris; W18.39XA Other fall on same level, initial encounter; Y93.01 Activity, walking, marching and hiking; Y92.89 Other specified places as the place of occurrence of the external cause; Y99.8 Other external cause status
CPT/HCPCS: 29505; 36415; 71045; 73502; 73552; 73562; 73610; 80053; 82550; 85025; 93971

== ENCOUNTER 2020-11-02 16:46 | Observation (INO) | payer OTHER ==
[~2020-11-02] VITALS: Ht 152.4 cm; Wt 47.9 kg
[2020-11-02 17:59] LABS: BASOPHILS % (AUTO) 0.4 % (0.0-5.0); EOSINOPHILS % (AUTO) 1.1 % (0.0-8.0); HEMATOCRIT 30.5 % (36-48); LYMPHOCYTES % (AUTO) 13.9 % (21.0-51.0); MEAN CORPUSCULAR HEMOGLOBIN 26.2 pg (27.0-33.0); MEAN CORPUSCULAR HGB CONC 31.8 g/dL (32.0-36.0); MEAN CORPUSCULAR VOLUME 82.4 fL (79-99); MONOCYTES % (AUTO) 6.6 % (3.0-13.0); NEUTROPHILS % (AUTO) 77.8 % (40.0-77.0); PLATELET COUNT (AUTO) 90 K/uL (130-400); RED CELL DISTRIBUTION WIDTH 15.4 % (11.0-15.5); WHITE BLOOD COUNT (AUTO) 4.7 K/uL (4.8-10.8)
[2020-11-02 18:08] LABS: CREATININE 0.8 mg/dL (0.5-1.5); POTASSIUM 3.3 mmol/L (3.5-5.1)
[2020-11-02 18:15] LABS: ALBUMIN 2.8 g/dL (3.5-5.0); BILIRUBIN,TOTAL 0.5 mg/dL (0.2-1.0)
[2020-11-02 18:35] LABS: APPEARANCE,URINE Cloudy (CLEAR); BILIRUBIN,URINE Negative (NEGATIVE); COLOR,URINE Yellow (YELLOW); GLUCOSE, URINE (UA) >=1000 mg/dL (NEGATIVE); KETONES,URINE Trace mg/dL (NEGATIVE); LEUKOCYTE ESTERASE ,URINE Moderate (NEGATIVE); NITRATE,URINE Negative (NEGATIVE); OCCULT BLOOD,URINE Small (NEGATIVE); PROTEIN,URINE POS 1+ mg/dL (NEGATIVE)
[2020-11-02 18:45] LABS: BACTERIA,URINE Many /HPF (None Seen); RBC,URINE None Seen /HPF (0-1); SQUAMOUS EPITHELIAL CELL,UR None Seen /HPF (0-2); YEAST,URINE BUDDING Moderate /HPF (None Seen)
[2020-11-02] MEDS ORDERED: POTASSIUM BICARB/CIT AC 25 MEQ TABLET.EFF ONE (19:06)
[2020-11-02] MEDS ORDERED: CEFTRIAXONE SODIUM 1 GM ONE (19:06)
[2020-11-02] MEDS ORDERED: INSULIN HUMULIN R 100 UNIT/ML 3ML ONE (19:07)
[2020-11-02] MEDS ORDERED: MAG HYDROX/AL HYDROX/SIMETH ES 30 ML SUSP UDCUP PO PRN (21:30)
[2020-11-02] MEDS ORDERED: GUAIFENESIN-DM 200/20 MG 10 ML PO PRN (21:30)
[2020-11-02] MEDS ORDERED: ACETAMINOPHEN 325 MG TAB PO PRN ×2 (21:30)
[2020-11-02] MEDS ORDERED: ONDANSETRON HCL 4 MG/2 ML VIAL IV PRN (21:30)
[2020-11-02] MEDS ORDERED: LACTULOSE 20 GM/30 ML UDCUP PO PRN (21:30)
[2020-11-02] MEDS ORDERED: NITROGLYCERIN 0.4 MG SL TAB SL PRN (21:30)
[2020-11-02] MEDS: SODIUM CHLORIDE 0.9% 1000ML 1,000 ML IV SCH (21:30)
[2020-11-02] MEDS ORDERED: ZOLPIDEM TARTRATE 5 MG TAB PO PRN (21:30)
[2020-11-02] MEDS ORDERED: MORPHINE SULFATE 4 MG/1ML SYG IV PRN (21:30)
[2020-11-03] VITALS (7 sets, daily range): BP systolic 117–164; BP diastolic 51–81
[2020-11-03] MEDS ORDERED: DEXTROSE 50%-WATER 50 ML DISP.SYRIN IV PRN (01:30)
[2020-11-03] MEDS ORDERED: GLUCAGON 1MG KIT 1 MG ML IM PRN (01:30)
[2020-11-03] MEDS ORDERED: METF750T46 PO (02:21)
[2020-11-03] MEDS ORDERED: SERT-439 PO (02:21)
[2020-11-03] MEDS ORDERED: FERS325 PO (02:21)
[2020-11-03] MEDS ORDERED: MAGN100T5 PO (02:21)
[2020-11-03] MEDS ORDERED: LEVO125C4 PO (02:21)
[2020-11-03] MEDS: INSULIN HUMULIN R 100 UNIT/ML 3ML SQ SCH ×4 (06:44→22:54)
[2020-11-03] MEDS ORDERED: CEFTRIAXONE SODIUM 1 GM IV SCH (07:30)
[2020-11-03 08:21] LABS: MEAN CORPUSCULAR HEMOGLOBIN 26.3 pg (27.0-33.0); MEAN CORPUSCULAR HGB CONC 31.7 g/dL (32.0-36.0); MEAN CORPUSCULAR VOLUME 83.1 fL (79-99); RED BLOOD CELL COUNT(AUTO) 3.61 MIL/uL (4.00-5.50); RED CELL DISTRIBUTION WIDTH 15.3 % (11.0-15.5)
[2020-11-03] MEDS: LEVOFLOXACIN 500 MG/D5W 100 ML 100 ML IV SCH (08:34)
[2020-11-03 08:36] LABS: ALBUMIN 2.6 g/dL (3.5-5.0); BILIRUBIN,DIRECT 0.2 mg/dL (0.0-0.3); BILIRUBIN,TOTAL 0.6 mg/dL (0.2-1.0); CREATININE 0.6 mg/dL (0.5-1.5); MAGNESIUM 1.5 mg/dL (1.80-2.40); POTASSIUM 3.7 mmol/L (3.5-5.1); TOTAL PROTEIN, SERUM 6.5 g/dL (6.0-8.3)
[2020-11-03] MEDS: FERROUS SULFATE 325 MG TABLET.DR PO SCH (08:36)
[2020-11-03] MEDS: FAMOTIDINE/PF 20 MG/2 ML VIAL IV SCH (08:36)
[2020-11-03] MEDS: SERTRALINE HCL 50 MG TABLET PO SCH (08:36)
[2020-11-03] MEDS: LEVOTHYROXINE 125 MCG TABLET PO SCH (08:40)
[2020-11-03] MEDS: SODIUM CHLORIDE 0.9% 1000ML 1,000 ML IV SCH ×3 (08:41→22:47)
[2020-11-03] MEDS ORDERED: ENOXAPARIN SODIUM 30 MG/0.3 ML SQ SCH (09:00)
[2020-11-03] MEDS ORDERED: MAGNESIUM 2GM PREMIX 50ML 50 ML IV PRN (09:30)
[2020-11-03] MEDS: METOCLOPRAMIDE 10 MG/2 ML VIAL IVP SCH ×2 (12:05→17:20)
[2020-11-03] MEDS: METRONIDAZOLE 500MG/100ML BAG 100 ML IVPB SCH ×2 (14:23→22:46)
[2020-11-03] MEDS: NYSTATIN 30 GM CREAM.GM. TP SCH (22:49)
[2020-11-03] MEDS: ZINC OXIDE OINT 30GM TUBE TP SCH (22:50)
[2020-11-03] MEDS: INSULIN GLARGINE 100 UNITS/ML 10 ML VIAL SQ SCH (22:53)
[2020-11-04 04:16] VITALS: BP 135/55
[2020-11-04 04:45] LABS: HEMATOCRIT 29.3 % (36-48); MEAN CORPUSCULAR HEMOGLOBIN 26.2 pg (27.0-33.0); MEAN CORPUSCULAR HGB CONC 32.1 g/dL (32.0-36.0); MEAN CORPUSCULAR VOLUME 81.6 fL (79-99); RED BLOOD CELL COUNT(AUTO) 3.59 MIL/uL (4.00-5.50); RED CELL DISTRIBUTION WIDTH 15.7 % (11.0-15.5); WHITE BLOOD COUNT (AUTO) 5.2 K/uL (4.8-10.8)
[2020-11-04 04:56] LABS: CREATININE 0.6 mg/dL (0.5-1.5); MAGNESIUM 1.5 mg/dL (1.80-2.40)
[2020-11-04] MEDS: METRONIDAZOLE 500MG/100ML BAG 100 ML IVPB SCH ×2 (05:05→13:23)
[2020-11-04 05:25] LABS: POTASSIUM 2.7 mmol/L (3.5-5.1)
[2020-11-04] MEDS: INSULIN HUMULIN R 100 UNIT/ML 3ML SQ SCH ×4 (05:39→20:45)
[2020-11-04] MEDS: LEVOFLOXACIN 500 MG/D5W 100 ML 100 ML IV SCH (06:07)
[2020-11-04] MEDS: METOCLOPRAMIDE 10 MG/2 ML VIAL IVP SCH ×3 (06:09→16:40)
[2020-11-04] MEDS: LEVOTHYROXINE 125 MCG TABLET PO SCH (06:16)
[2020-11-04] MEDS ORDERED: POTASSIUM CHLORIDE 10% ELIXIR 20 MEQ/15 ML UDCUP PO PRN (07:30)
[2020-11-04] MEDS ORDERED: NON-FORMULARY MEDICATION 1 EACH (Levothyroxine Sodium (Levothyroxine) 125 MCG) PO SCH (07:30)
[2020-11-04] MEDS ORDERED: LIDOCAINE HCL-MPF 1% 2ML VIAL IV PRN ×2 (07:30)
[2020-11-04] MEDS ORDERED: POTASSIUM CHLORIDE 20MEQ/100ML 100 ML IV PRN (07:30)
[2020-11-04] MEDS: SERTRALINE HCL 50 MG TABLET PO SCH (08:30)
[2020-11-04] MEDS: FAMOTIDINE/PF 20 MG/2 ML VIAL IV SCH (08:30)
[2020-11-04] MEDS: FERROUS SULFATE 325 MG TABLET.DR PO SCH (08:30)
[2020-11-04] MEDS: POTASSIUM CHLORIDE 20 MEQ ERTAB PO PRN ×2 (08:30→11:40)
[2020-11-04] MEDS: POTASSIUM CHLORIDE 20MEQ/100ML 100 ML IV PRN ×2 (08:31→11:40)
[2020-11-04] MEDS: ZINC OXIDE OINT 30GM TUBE TP SCH ×4 (08:40→20:45)
[2020-11-04] MEDS: NYSTATIN 30 GM CREAM.GM. TP SCH ×2 (08:41→20:45)
[2020-11-04 09:46] VITALS: BP 133/59
[2020-11-04 12:13] VITALS: BP 152/70
[2020-11-04] MEDS: SODIUM CHLORIDE 0.9% 1000ML 1,000 ML IV SCH (13:24)
[2020-11-04 15:15] LABS: MAGNESIUM 1.9 mg/dL (1.80-2.40); POTASSIUM 3.8 mmol/L (3.5-5.1)
[2020-11-04 16:53] VITALS: BP 153/63
[2020-11-04 19:35] VITALS: BP 165/67
[2020-11-04] MEDS: INSULIN GLARGINE 100 UNITS/ML 10 ML VIAL SQ SCH (20:51)
== END 2020-11-04 22:45 | disposition home or self-care (01) ==
LOC: EDH 16:46 → EDHIP 21:26 → 3DH 22:33
PROVIDERS: ADMIT Internal Medicine; ATTEND Internal Medicine
DX: K85.90 Acute pancreatitis without necrosis or infection, unspecified (principal); K52.9 Noninfective gastroenteritis and colitis, unspecified; K74.60 Unspecified cirrhosis of liver; E11.65 Type 2 diabetes mellitus with hyperglycemia; N28.1 Cyst of kidney, acquired; K57.30 Diverticulosis of large intestine without perforation or abscess without bleeding; N30.00 Acute cystitis without hematuria; D61.818 Other pancytopenia; I25.10 Atherosclerotic heart disease of native coronary artery without angina pectoris; E78.5 Hyperlipidemia, unspecified; I10 Essential (primary) hypertension; B35.6 Tinea cruris; D64.9 Anemia, unspecified; Z16.35 Resistance to multiple antimicrobial drugs; Z79.84 Long term (current) use of oral hypoglycemic drugs; Z79.899 Other long term (current) drug therapy
CPT/HCPCS: 36415 ×3; 74176; 76705; 80048 ×2; 80053; 80076; 81001; 82948 ×10; 83605; 83690 ×2; 83735 ×3; 83880; 84132; 84145; 85025; 85027 ×2; 87040 ×2; 87077; 87088 ×2; 87186; 96361; 96365; 96366 ×2; 96367 ×2; 96368; 96372 ×2; 96375 ×2; 96376 ×2; 99285; G0378 ×49; J0696; J1815 ×5; J1956 ×2; J2765 ×5; J3475; J3480 ×2; J3490 ×8; J7030